=== PATIENT | male | born 1940 | race Two or more races ===

== ENCOUNTER 2020-05-23 05:47 | Day surgery (SDC) | payer OTHER ==
[~2020-05-23 05:47] MED LIST: CELEXA10 MG PO; COZAAR100 MG PO; HYDROCHLOROTHIA25 MG PO; LEVOXYL50 MCG PO; PROTONIX40 MG PO; SINGULAIR 10MG10 MG PO; ZYLOPRIM100 M1 PO
== END 2020-05-23 13:35 | disposition home or self-care (01) ==
LOC: CIR.AMB 05:47
PROVIDERS: ATTEND Otolaryngology Otology & Neurotology
DX: H72.01 Central perforation of tympanic membrane, right ear (principal); H61.811 Exostosis of right external canal; Z20.828 Contact with and (suspected) exposure to other viral communicable diseases

== ENCOUNTER 2021-01-29 08:16 | Outpatient (CLI) | payer OTHER | END 2021-01-29 08:26 | disposition home or self-care (01) | LOC: TOM 08:16 | PROVIDERS: ATTEND Internal Medicine Gastroenterology | DX: K57.30 Diverticulosis of large intestine without perforation or abscess without bleeding (principal) ==

== ENCOUNTER 2021-03-22 08:33 | Inpatient (IN) | payer OTHER ==
[~2021-03-22] VITALS: Ht 167.6 cm; Wt 74.8 kg
--- NOTE | 2021-03-22 08:56 | NUR ---
PACIENTE ALERTA Y ORIENTADO X3. REFIERE RANGRADO ANAL DESDE LA NOCHE DE LINDA. DUDLEY REFIERE PTE CON OBSTRUCCION INTESTINAL PROXIMO A PROCEDIMIENTO CON DR. SLICK ALVAREZ. DUDLEY REFIERE 8 DEPOSICIONES SANGIONOLENTAS. SE MONITOREAN S/V.
--- NOTE | 2021-03-22 09:02 | NUR ---
PACIENTE REFIERE DEBILIDAD Y MAREOS.
--- NOTE | 2021-03-22 10:36 | NUR ---
SE ORIENTA PTE SOBRE EL TRATAMIENTO POR EL DR FLORES PTE ALERTA Y CONCIENTE POR 3 RN JESSICA REALIZA MUESTRAS DE LABORATORIO PTE SE MANTIENE EN OBSERVACION Y SE ENVIAN TUBO CAMRYN AL BACO DE MANJINDER
--- NOTE | 2021-03-22 11:07 | NUR ---
SE REQUISAN TUBOS PILOTOS PARA 2 U DE PRBC FRACCIONADAS, LAS MISMAS SE MANTIENEN EN HOLD, ENTREGADAS A MR HERRERA.
[2021-03-28] MEDS ORDERED: INTEGRA PLUS C1 EACH PO (09:07)
[2021-03-28] MEDS ORDERED: B12 ACTIVE1000 MCG PO (09:09)
== END 2021-03-28 12:25 | disposition home or self-care (01) | DRG 982 ==
LOC: ER 08:33 → SURH 21:34
PROVIDERS: ADMIT Surgery; ATTEND Surgery
PROC: BW2110Z Computerized Tomography (CT Scan) of Abdomen and Pelvis using Low Osmolar Contrast, Unenhanced and Enhanced (ICD-10-PCS; 2021-03-22)
PROC: B24BZZZ Ultrasonography of Heart with Aorta (ICD-10-PCS; 2021-03-22)
PROC: 4A12X4Z Monitoring of Cardiac Electrical Activity, External Approach (ICD-10-PCS; 2021-03-22)
PROC: 3E0F7SF Introduction of Other Gas into Respiratory Tract, Via Natural or Artificial Opening (ICD-10-PCS; 2021-03-22)
PROC: 30233N1 Transfusion of Nonautologous Red Blood Cells into Peripheral Vein, Percutaneous Approach (ICD-10-PCS; 2021-03-23)
PROC: 0DTP0ZZ Resection of Rectum, Open Approach (ICD-10-PCS; 2021-03-24)
PROC: 4A033R1 Measurement of Arterial Saturation, Peripheral, Percutaneous Approach (ICD-10-PCS; 2021-03-24)
PROC: 0DTN0ZZ Resection of Sigmoid Colon, Open Approach (ICD-10-PCS; principal; 2021-03-24 11:00)
DX: D64.9 Anemia, unspecified (principal); K92.1 Melena; K57.30 Diverticulosis of large intestine without perforation or abscess without bleeding; I95.9 Hypotension, unspecified; E03.8 Other specified hypothyroidism; G30.9 Alzheimer's disease, unspecified; F02.80 Dementia in other diseases classified elsewhere, unspecified severity, without behavioral disturbance, psychotic disturbance, mood disturbance, and anxiety; I12.9 Hypertensive chronic kidney disease with stage 1 through stage 4 chronic kidney disease, or unspecified chronic kidney disease; N18.9 Chronic kidney disease, unspecified; Z20.822 Contact with and (suspected) exposure to COVID-19; E11.9 Type 2 diabetes mellitus without complications; K63.89 Other specified diseases of intestine

== ENCOUNTER 2021-11-27 08:21 | Inpatient (IN) | payer OTHER ==
[~2021-11-27] VITALS: Ht 167.6 cm; Wt 69.9 kg
[~2021-11-27 08:21] MED LIST changes: +B12 ACTIVE1000 MCG PO; +INTEGRA PLUS C1 EACH PO
[2021-12-05] MEDS ORDERED: DONEPEZIL HCL5 MG (08:25)
[2021-12-05] MEDS ORDERED: AZELASTINE137 MCG/0. (08:26)
[2021-12-07] MEDS ORDERED: PROTONIX40 MG PO ×2 (11:53)
[2021-12-07] MEDS ORDERED: INTESTINEX680 M1 PO ×2 (11:53)
[2021-12-07] MEDS ORDERED: AMOX1TAB5 PO ×2 (11:53)
[2021-12-07] MEDS ORDERED: HYOSCYAMINE0.125 M1 SL ×2 (11:53)
[2021-12-07] MEDS ORDERED: ULTRACET PO ×2 (11:53)
== END 2021-12-07 13:30 | disposition home or self-care (01) | DRG 329 ==
LOC: O/R 12-04 09:15 → SURH 12-04 09:15 → SURG 12-04 09:15 → SURH 12-04 14:48
PROVIDERS: ADMIT Surgery; ATTEND Surgery
PROC: 0DJD8ZZ Inspection of Lower Intestinal Tract, Via Natural or Artificial Opening Endoscopic (ICD-10-PCS; 2021-12-04)
PROC: 0DBL4ZZ Excision of Transverse Colon, Percutaneous Endoscopic Approach (ICD-10-PCS; principal; 2021-12-04 09:15)
DX: Z43.3 Encounter for attention to colostomy (principal); K57.31 Diverticulosis of large intestine without perforation or abscess with bleeding; K43.5 Parastomal hernia without obstruction or gangrene; E11.9 Type 2 diabetes mellitus without complications; I10 Essential (primary) hypertension; E03.8 Other specified hypothyroidism; G30.8 Other Alzheimer's disease; F02.80 Dementia in other diseases classified elsewhere, unspecified severity, without behavioral disturbance, psychotic disturbance, mood disturbance, and anxiety

== ENCOUNTER 2021-12-02 15:07 | Day surgery (SDC) | payer OTHER | END 2021-12-02 15:09 | disposition home or self-care (01) | LOC: AMB-ENDOS 15:07 | PROVIDERS: ATTEND Surgery | DX: K57.30 Diverticulosis of large intestine without perforation or abscess without bleeding (principal); Z93.3 Colostomy status; I10 Essential (primary) hypertension; E03.9 Hypothyroidism, unspecified; G30.9 Alzheimer's disease, unspecified ==

== ENCOUNTER 2022-01-17 10:35 | Emergency (ER) | payer OTHER ==
[~2022-01-17] VITALS: Ht 170.2 cm; Wt 68.5 kg
[~2022-01-17 10:35] MED LIST changes: +AMOX1TAB5 PO; +AZELASTINE137 MCG/0.; +DONEPEZIL HCL5 MG; +HYOSCYAMINE0.125 M1 SL; +INTESTINEX680 M1 PO; +ULTRACET PO
[2022-01-17] MEDS ORDERED: CITALOPRAM20 MG/10 M PO (10:50)
[2022-01-17] MEDS ORDERED: CLONAZEPAM0.5 M1 PO (10:51)
== END 2022-01-17 16:42 ==
LOC: ER 10:35
DX: B34.8 Other viral infections of unspecified site (principal); R53.1 Weakness; I10 Essential (primary) hypertension; G30.9 Alzheimer's disease, unspecified; F02.80 Dementia in other diseases classified elsewhere, unspecified severity, without behavioral disturbance, psychotic disturbance, mood disturbance, and anxiety

== ENCOUNTER 2022-01-21 17:32 | Emergency (ER) | payer OTHER ==
[~2022-01-21] VITALS: Ht 167.6 cm; Wt 67.6 kg
[~2022-01-21 17:32] MED LIST changes: +CITALOPRAM20 MG/10 M PO; +CLONAZEPAM0.5 M1 PO
== END 2022-01-21 22:46 | disposition home or self-care (01) ==
LOC: ER 17:32
DX: R53.1 Weakness (principal); R53.81 Other malaise; R42 Dizziness and giddiness; G30.9 Alzheimer's disease, unspecified; F02.80 Dementia in other diseases classified elsewhere, unspecified severity, without behavioral disturbance, psychotic disturbance, mood disturbance, and anxiety

== ENCOUNTER 2023-01-26 05:45 | Day surgery (SDC) | payer OTHER | END 2023-01-26 11:20 | disposition home or self-care (01) | LOC: AMB-ENDOS 05:45 | PROVIDERS: ATTEND Surgery | DX: Z12.11 Encounter for screening for malignant neoplasm of colon (principal); K57.30 Diverticulosis of large intestine without perforation or abscess without bleeding; K64.8 Other hemorrhoids; Z20.822 Contact with and (suspected) exposure to COVID-19 ==

== ENCOUNTER 2023-06-17 17:37 | Emergency (ER) | payer OTHER ==
[~2023-06-17] VITALS: Ht 162.6 cm; Wt 72.6 kg
[2023-06-17] MEDS ORDERED: AZELASTINE137 MCG/0. NASAL (18:53)
[2023-06-17] MEDS ORDERED: ZYLOPRIM100 M1 PO (18:53)
[2023-06-17] MEDS ORDERED: CITALOPRAM20 MG/10 M PO (18:54)
[2023-06-17] MEDS ORDERED: HYDROCHLOROTHIA25 MG PO (18:55)
[2023-06-17] MEDS ORDERED: ARICEPT5 MG PO (18:55)
[2023-06-17 20:07] LABS: HEMATOCRIT 35.2 % (39.0-48.0); HEMOGLOBIN 11.7 g/dL (13-16.00); MEAN CORPUSCULAR HEMOGLOBIN 31.8 pg (27.00-32.0); MEAN CORPUSCULAR HGB CONC 33.1 g/dl (32.0-36.0); PLATELET COUNT 206 K/uL (150-450); RED BLOOD COUNT 3.67 M/uL (4.00-6.00); RED CELL DISTRIBUTION WIDTH 14.3 % (11.5-14.5)
[2023-06-17 20:18] LABS: PH,URINE 6.5 (5.0-8.0); URINE APPEARANCE Clear; URINE BILIRRUBIN Negative (NEGATIVE); URINE BLOOD Moderate; URINE COLOR Yellow; URINE GLUCOSE Negative (NEGATIVE); URINE LEUKOCYTE Small; URINE NITRATE Negative; URINE PROTEIN 30 (NEGATIVE)
[2023-06-17 20:22] LABS: URINE BACTERIA 28.9 uL (0.0-1933); URINE EPITHELIAL CELLS 2.4 uL (0.0-38.8); URINE RBC 287.7 uL (0.0-20.8); URINE WBC 18.6 uL (0.0-23.2)
[2023-06-17 20:22] LABS: CALCIUM 8.9 mg/dL (8.5-10.1); CREATININE SERUM 1.8 mg/dL (0.70-1.30); GFR 36.04; POTASSIUM 4.2 mEq/L (3.5-5.1)
== END 2023-06-17 20:55 | disposition home or self-care (01) ==
LOC: ER 17:37
PROVIDERS: General Practice
DX: U07.1 COVID-19 (principal); R50.9 Fever, unspecified; E11.9 Type 2 diabetes mellitus without complications; I10 Essential (primary) hypertension

== ENCOUNTER 2024-04-14 10:23 | Emergency (ER) | payer OTHER ==
[~2024-04-14] VITALS: Ht 167.6 cm; Wt 68.0 kg
[~2024-04-14 10:23] MED LIST changes: +ARICEPT5 MG PO; +AZELASTINE137 MCG/0. NASAL
[2024-04-14 11:08] LABS: HEMATOCRIT 33.3 % (39.0-48.0); HEMOGLOBIN 11.2 g/dL (13-16.00); MEAN CELL VOLUME 93.4 fL (80.0-100.00); MEAN CORPUSCULAR HEMOGLOBIN 31.3 pg (27.00-32.0); MEAN CORPUSCULAR HGB CONC 33.5 g/dl (32.0-36.0); PLATELET COUNT 202 K/uL (150-450); RED BLOOD COUNT 3.56 M/uL (4.00-6.00); RED CELL DISTRIBUTION WIDTH 15.6 % (11.5-14.5)
[2024-04-14 11:42] LABS: CALCIUM 9.2 mg/dL (8.5-10.1); CREATININE SERUM 3.05 mg/dL (0.70-1.30); GFR 19.61; POTASSIUM 3.38 mEq/L (3.5-5.1)
== END 2024-04-14 13:51 | disposition home or self-care (01) ==
LOC: ER 10:23
PROVIDERS: Emergency Medicine
DX: S09.8XXA Other specified injuries of head, initial encounter (principal); W18.39XA Other fall on same level, initial encounter; Y93.H2 Activity, gardening and landscaping; Y92.017 Garden or yard in single-family (private) house as the place of occurrence of the external cause; I10 Essential (primary) hypertension; J45.909 Unspecified asthma, uncomplicated; E11.9 Type 2 diabetes mellitus without complications; N19 Unspecified kidney failure

== ENCOUNTER 2024-09-24 11:08 | Emergency (ER) | payer OTHER ==
[~2024-09-24] VITALS: Ht 167.6 cm; Wt 53.5 kg
[2024-09-24] MEDS ORDERED: LEVOTHYROXINE50 MCG PO (11:22)
[2024-09-24] MEDS ORDERED: ALLOPURINOL100 MG PO (11:23)
[2024-09-24] MEDS ORDERED: RISPERIDONE0.25 MG PO (11:23)
[2024-09-24] MEDS ORDERED: LORAZEPAM0.5 MG PO (11:23)
[2024-09-24] MEDS ORDERED: ASPIRIN 325 MG TABLET PO ONE (11:45)
[2024-09-24 12:13] LABS: HEMATOCRIT 26.6 % (39.0-48.0); MEAN CELL VOLUME 97.2 fL (80.0-100.00); MEAN CORPUSCULAR HGB CONC 34.5 g/dl (32.0-36.0); PLATELET COUNT 338 K/uL (150-450); RED BLOOD COUNT 2.74 M/uL (4.00-6.00); RED CELL DISTRIBUTION WIDTH 15.9 % (11.5-14.5)
[2024-09-24 12:19] LABS: HEMOGLOBIN 9.2 g/dL (13-16.00); MEAN CORPUSCULAR HEMOGLOBIN 33.5 pg (27.00-32.0)
[2024-09-24 12:33] LABS: INR 1.03; PARTIAL THROMBOPLASTIN TIME 22.3 SECONDS (22.0-34.0); PROTHROMBIN TIME 11.2 SECONDS (9.0-11.5)
[2024-09-24 13:12] LABS: ALBUMIN 3.4 gm/dL (3.4-5.0); CALCIUM 9.1 mg/dL (8.5-10.1); POTASSIUM 4.37 mEq/L (3.5-5.1)
[2024-09-24 13:14] LABS: BILIRUBIN TOTAL 0.28 mg/dL (0.3-1.2); CREATININE SERUM 1.82 mg/dL (0.70-1.30); GFR 35.5; GLOBULINA 3.4 G/DL (2.4-3.5); TOTAL PROTEIN 6.8 gm/dL (6.4-8.2)
[2024-09-24 13:15] LABS: TROPONIN I hs 9.8 PG/ML (42.2-82.3)
== END 2024-09-24 19:01 | disposition home or self-care (01) ==
LOC: ER 11:11
PROVIDERS: General Practice
DX: R07.9 Chest pain, unspecified (principal); F03.90 Unspecified dementia, unspecified severity, without behavioral disturbance, psychotic disturbance, mood disturbance, and anxiety; I25.2 Old myocardial infarction; N28.9 Disorder of kidney and ureter, unspecified; Z93.3 Colostomy status; R51.9 Headache, unspecified; Z20.822 Contact with and (suspected) exposure to COVID-19